=== PATIENT | male | born 1990 | race African-American/Black ===

== ENCOUNTER 2017-02-24 13:52 | Emergency (ER) | payer SELFPAY ==
[2017-02-24] MEDS ORDERED: LIDOCAINE 5% (700 MG) TRANSDERMAL ADH..PATCH TP ONE (14:21)
--- NOTE | 2017-02-24 14:23 | ER Document Report ---
HPI - HPI Patient complains to provider of: low back pain Onset: Yesterday Onset/Duration: Sudden Quality of pain: Achy Pain Level: 4 Context: Patient states that he bent down to moss picker his little sister yesterday and had a sudden onset of left lower back pain. Patient complains of continued back pain today. Patient denies any previous history of back pain, fever, or IV drug use. Patient denies any weakness. Associated Symptoms: Other. denies: Fever - Low back pain Exacerbated by: Movement Relieved by: Remaining still Similar symptoms previously: No Recently seen / treated by doctor: No - ROS ROS below otherwise negative: Yes Systems Reviewed and Negative: Yes All other systems reviewed and negative - CONSTITUTIONAL Constitutional: DENIES: Fever - NEURO Neurology: DENIES: Weakness - URINARY Urinary: DENIES: Dysuria - MUSCULOSKELETAL Musculoskeletal: REPORTS: Back Pain. DENIES: Extremity pain, Neck Pain - DERM Skin Color: Normal Skin Problems: None Past Medical History - General Information source: Patient - Social History Smoking Status: Current Every Day Smoker Frequency of alcohol use: Occasional Drug Abuse: None Occupation: none Lives with: Family Family History: Reviewed & Not Pertinent Patient has suicidal ideation: No Patient has homicidal ideation: No Pulmonary Medical History: Reports: Hx Asthma Renal/ Medical History: Denies: Hx Peritoneal Dialysis Psychiatric Medical History: Reports: Hx Anxiety, Hx Depression, Hx Schizophrenia - , agorophobic panic disorder Surgical Hx: Negative - Immunizations Immunizations up to date: No Hx Diphtheria, Pertussis, Tetanus Vaccination: No Vertical Provider Document - CONSTITUTIONAL Agree With Documented VS: Yes Exam Limitations: No Limitations General Appearance: WD/WN, No Apparent Distress Notes: PHYSICAL EXAMINATION: GENERAL: Well-appearing, well-nourished and in no acute distress. HEAD: Atraumatic, normocephalic. EYES: sclera clear, anicteric, conjunctiva are normal. ENT: nares patent, Moist mucous membranes. NECK: Normal range of motion, supple no lymphadenopathy LUNGS: respirations unlabored HEART: Regular rate and rhythm without murmurs EXTREMITIES: Normal range of motion, no pitting or edema. No cyanosis. Gait normal, pt ambulates without difficulty BACK: Left lower lumbar paraspinal Frans[place], no midline tenderness, no deformities or step-offs. No CVA tenderness. NEUROLOGICAL: Cranial nerves grossly intact. Normal speech, normal gait. No saddle anesthesia. PSYCH: Normal mood, normal affect. SKIN: Warm, Dry, normal turgor, no rashes or lesions noted. - INFECTION CONTROL TRAVEL OUTSIDE OF THE [place] IN LAST 30 DAYS: No - RESPIRATORY O2 Sat by Pulse Oximetry: 99 Course - Re-evaluation Re-evalutation: 02/24/17 14:21 Discussed worsening signs or symptoms that patient should return to [facility] for. Patient verbalized understanding and agrees plan of care - Vital Signs Vital signs: Temp Pulse Resp BP Pulse Ox 99.0 F 76 16 138/52 H 99 02/24/17 14:00 02/24/17 14:00 02/24/17 14:00 02/24/17 14:00 02/24/17 14:00 Discharge - Discharge Clinical Impression: Low back strain Qualifiers: Encounter type: initial encounter Qualified Code(s): S39.012A - Strain of muscle, fascia and tendon of lower back, initial encounter Condition: Stable Disposition: HOME, SELF-CARE Instructions: Warm Packs ([facility]), Ice Packs ([facility]), Low Back Pain ([facility]), Muscle Strain ([facility]), Muscle Relaxers ([facility]) Additional Instructions: Return immediately for any new or worsening symptoms Followup with your primary care provider, call tomorrow to make a followup appointment You may use [id number] topical lidocaine patches as directed Prescriptions: Cyclobenzaprine HCl [Flexeril 10 Mg Tablet] 10 mg PO TID #15 tablet Naproxen [Naprosyn 250 Nmg Tablet] 1 tab PO BID #14 tablet Referrals: [facility] [Provider Group] - Follow up as needed [facility] [Provider Group] - Follow up tomorrow
[2017-02-24 14:58] VITALS: BP 123/56
== END 2017-02-24 14:31 | disposition home or self-care (01) ==
LOC: ER 13:52
DX: S39.012A Strain of muscle, fascia and tendon of lower back, initial encounter (principal); X50.1XXA Overexertion from prolonged static or awkward postures, initial encounter; Y93.89 Activity, other specified; J45.909 Unspecified asthma, uncomplicated; F17.200 Nicotine dependence, unspecified, uncomplicated
CPT/HCPCS: 99283

== ENCOUNTER 2017-10-13 10:14 | Emergency (ER) | payer SELFPAY ==
[2017-10-13] MEDS ORDERED: IBUPROFEN 800 MG TABLET PO ONE (10:47)
[2017-10-13] MEDS ORDERED: DIPH/PERTUSS(ACELL)/TETANUS VAC/PF 0.5 ML SYR (>=10YO) IM ONE (10:47)
--- NOTE | 2017-10-13 10:49 | ER Document Report ---
HPI - HPI Patient complains to provider of: Right arm injury Onset: Yesterday Onset/Duration: Sudden Quality of pain: Achy Pain Level: 5 Context: Patient states he was drinking alcohol yesterday and fell breaking a glass plate. Patient complains of right forearm tenderness and is concerned that his arm is broken. Associated Symptoms: Other - Right forearm tenderness Exacerbated by: Movement Relieved by: Denies Similar symptoms previously: No Recently seen / treated by doctor: No - ROS ROS below otherwise negative: Yes Systems Reviewed and Negative: Yes All other systems reviewed and negative - CONSTITUTIONAL Constitutional: DENIES: Fever, Chills - NEURO Neurology: DENIES: Weakness - GASTROINTESTINAL Gastrointestinal: DENIES: Nausea - MUSCULOSKELETAL Musculoskeletal: REPORTS: Extremity pain - DERM Skin Problems: Laceration Past Medical History - General Information source: Patient - Social History Smoking Status: Current Every Day Smoker Smoking Education Provided: Yes Frequency of alcohol use: Occasional Drug Abuse: None Occupation: None Lives with: Family Family History: Reviewed & Not Pertinent Pulmonary Medical History: Reports: Hx Asthma Renal/ Medical History: Denies: Hx Peritoneal Dialysis Psychiatric Medical History: Reports: Hx Anxiety, Hx Depression, Hx Schizophrenia - , agorophobic panic disorder Surgical Hx: Negative - Immunizations Immunizations up to date: No Hx Diphtheria, Pertussis, Tetanus Vaccination: No Vertical Provider Document - CONSTITUTIONAL Agree With Documented VS: Yes Exam Limitations: No Limitations General Appearance: WD/WN, No Apparent Distress - INFECTION CONTROL TRAVEL OUTSIDE OF THE [place] IN LAST 30 DAYS: No - HEENT HEENT: Atraumatic, Normocephalic - NECK Neck: Normal Inspection - RESPIRATORY Respiratory: No Respiratory Distress O2 Sat by Pulse Oximetry: 96 - CARDIOVASCULAR Pulses: Normal: Radial - MUSCULOSKELETAL/EXTREMETIES Musculoskeletal/Extremeties: MAEW, Tender - Right forearm tenderness with 1 cm laceration to middle third of right forearm. - NEURO Level of Consciousness: Awake, Alert, Appropriate Motor/Sensory: No Motor Deficit - DERM Integumentary: Warm, Dry, Laceration - r FA Course - Re-evaluation Re-evalutation: 10/13/17 12:19 After laceration was anesthetized with 1% lidocaine, wound was probed to attempt to remove glass foreign body. This provider unsuccessful with foreign body removal. Dr. Layton at bedside for attempt at foreign body removal. Recommends consultation with orthopedic surgeon. Consulted with Dr. Laird who recommends having patient sent over to the office directly for further evaluation. 10/13/17 12:20 - Vital Signs Vital signs: Temp Pulse Resp BP Pulse Ox 98.6 F 91 18 114/76 96 10/13/17 10:30 10/13/17 10:30 10/13/17 10:30 10/13/17 10:30 10/13/17 10:30 - Diagnostic Test Radiology reviewed: Image reviewed, Reports reviewed Discharge - Discharge Clinical Impression: Foreign body in subcutaneous tissue Condition: Stable Disposition: HOME, SELF-CARE Instructions: Retained Subcutaneous Foreign Object ([facility]) Additional Instructions: Return immediately for any new or worsening symptoms Followup with Dr. Laird in his office directly. He states that he will evaluate you in the office today. Referrals: HOWIE LAIRD MD [ACTIVE STAFF] - 10/13/17
--- NOTE | 2017-10-13 11:12 | RADIOLOGY REPORT (SQ) ---
EXAM DESCRIPTION: FOREARM RIGHT COMPLETED DATE/TIME: 10/13/2017 11:02 am REASON FOR STUDY: fall on glass, ? FB COMPARISON: None. NUMBER OF VIEWS: Two views. TECHNIQUE: Two radiographic images acquired of the right forearm, including elbow and wrist in at le ast one projection. LIMITATIONS: None. FINDINGS: MINERALIZATION: Normal. BONES: Triangular-shaped foreign body is apparently imbedded in the mid ulna. SOFT TISSUES: A triangular shaped radiopaque foreign body appears to be imbedded in the mid ulna. OTHER: No other significant finding. IMPRESSION: Triangular foreign body in the mid ulna. TECHNICAL DOCUMENTATION: JOB ID: [id number] [employer]- All Rights Reserved
[2017-10-13 13:01] VITALS: BP 116/69
== END 2017-10-13 13:02 | disposition home or self-care (01) ==
LOC: ER 10:14
DX: S51.821A Laceration with foreign body of right forearm, initial encounter (principal); W10.9XXA Fall (on) (from) unspecified stairs and steps, initial encounter; W25.XXXA Contact with sharp glass, initial encounter; J45.909 Unspecified asthma, uncomplicated; F17.200 Nicotine dependence, unspecified, uncomplicated; Z71.6 Tobacco abuse counseling
CPT/HCPCS: 90471; 90715; 99283

== ENCOUNTER 2019-03-27 17:16 | Emergency (ER) | payer SELFPAY ==
--- NOTE | 2019-03-27 17:35 | ER Document Report ---
ED Medical Screen (RME) - General Chief Complaint: Testicular Pain Stated Complaint: TESTICLE PAIN Time Seen by Provider: 03/27/19 17:30 Mode of Arrival: Medic Information source: Patient Notes: Patient presents to the emergency department brought in by EMS for complaints of right testicular pain and swelling. Reports symptoms started this morning. He reports he ran a bunch of errands this morning and by the time he finished his right testicle was more swollen. He also reports penile discharge. Reportss he is sexually active but uses condoms. Denies fever vomiting diarrhea reports l ower abdominal pain. Patient is wrapped up in 2 jackets reports he likes to sleep with really cold with the air conditioning cranked up. The ambulance picked him up at his mother's house. I have greeted and performed a rapid initial assessment of this patient. A comprehensive ED assessment and evaluation of the patient, analysis of test results and completion of the medical decision making process will be conducted by additional ED providers. Dictation of this chart was performed using voice recognition software; therefore, there may be some unintended grammatical errors. TRAVEL OUTSIDE OF THE [place] IN LAST 30 DAYS: No - Related Data Allergies/Adverse Reactions: risperidone [From Risperdal] Allergy (Mild, Verified 03/27/19 17:25) Dystonia iodine [Iodine] Allergy (Verified 03/27/19 17:25) Shellfish * [Shellfish] Allergy (Verified 03/27/19 17:25) Past Medical History Pulmonary Medical History: Reports: Hx Asthma Renal/ Medical History: Denies: Hx Peritoneal Dialysis Psychiatric Medical History: Reports: Hx Anxiety, Hx Depression, Hx Schizophrenia - , agorophobic panic disorder - Immunizations Immunizations up to date: No Hx Diphtheria, Pertussis, Tetanus Vaccination: No Physical Exam - Vital signs Vitals: Temp Pulse Resp BP Pulse Ox 99.6 F 90 16 101/59 L 94 03/27/19 17:24 03/27/19 17:24 03/27/19 17:24 03/27/19 17:24 03/27/19 17:24 Course - Vital Signs Vital signs: Temp Pulse Resp BP Pulse Ox 99.6 F 90 16 101/59 L 94 03/27/19 17:24 03/27/19 17:24 03/27/19 17:24 03/27/19 17:24 03/27/19 17:24
[2019-03-27 18:22] LABS: ABSOLUTE LYMPHOCYTES (AUTO) 1.3 10^3/uL (0.5-4.7); ABSOLUTE MONOCYTES (AUTO) 0.7 10^3/uL (0.1-1.4); ABSOLUTE NEUT (AUTO) 11.8 10^3/uL (1.7-8.2); BASOPHILS % (AUTO) 0.2 % (0-2); HEMATOCRIT 44.1 % (37.9-51.0); HEMOGLOBIN 14.6 g/dL (13.5-17.0); LYMPHOCYTES % (AUTO) 9.7 % (13-45); MEAN CORPUSCULAR HEMOGLOBIN 32.1 pg (27.0-33.4); MEAN CORPUSCULAR HGB CONC 33.2 g/dL (32.0-36.0); MEAN CORPUSCULAR VOLUME 97 fl (80-97); MONOCYTES % (AUTO) 5.4 % (3-13); PLATELET COUNT 304 10^3/uL (150-450); RED BLOOD COUNT 4.56 10^6/uL (4.35-5.55); RED CELL DISTRIBUTION WIDTH 12.9 % (11.5-14.0); SEGMENTED NEUTROPHILS % (AUTO) 84.7 % (42-78); TOTAL CELLS COUNTED % (AUTO) 100 %; WHITE BLOOD COUNT 13.9 10^3/uL (4.0-10.5)
[2019-03-27 18:28] LABS: APPEARANCE,URINE SLIGHTLY-CLOUDY; BILIRUBIN,URINE NEGATIVE (NEGATIVE); COLOR,URINE YELLOW; GLUCOSE, URINE NEGATIVE (NEGATIVE); KETONES,URINE NEGATIVE (NEGATIVE); LEUKOCYTE ESTERASE,URINE LARGE (NEGATIVE); NITRITE,URINE NEGATIVE (NEGATIVE); PROTEIN,URINE NEGATIVE (NEGATIVE); URINE SPECIFIC GRAVITY 1.015; UROBILINOGEN,URINE NEGATIVE mg/dL (<2.0)
[2019-03-27 18:35] LABS: ALANINE AMINOTRANSFERASE 21 U/L (21-72); ALBUMIN 3.3 g/dL (3.5-5.0); ALKALINE PHOSPHATASE 40 U/L (38-126); ANION GAP 8 (5-19); ASPARTATE AMINO TRANSFERASE 25 U/L (17-59); BILIRUBIN,DIRECT 0.1 mg/dL (0.0-0.4); BLOOD UREA NITROGEN 9 mg/dL (7-20); CALCIUM 9.2 mg/dL (8.4-10.2); CARBON DIOXIDE 31 mmol/L (22-30); CHLORIDE 101 mmol/L (98-107); GLUCOSE 135 mg/dL (75-110); POTASSIUM 5.1 mmol/L (3.6-5.0); SODIUM 139.5 mmol/L (137-145); TOTAL PROTEIN 5.7 g/dL (6.3-8.2)
[2019-03-27] MEDS ORDERED: ONDANSETRON 4 MG TAB.RAPDIS PO ONE (18:55)
[2019-03-27] MEDS ORDERED: DOXYCYCLINE HYCLATE 100 MG TABLET PO ONE (19:02)
[2019-03-27] MEDS ORDERED: CEFTRIAXONE INJ 250 MG VIAL IM ONE (19:02)
[2019-03-27] MEDS ORDERED: LIDOCAINE 1% INJ-PF (10 MG/ML) 30 ML SDV INJ ONE (19:02)
--- NOTE | 2019-03-27 19:10 | ER Document Report ---
ED GI/ - General Chief Complaint: Testicular Pain Stated Complaint: TESTICLE PAIN Time Seen by Provider: 03/27/19 17:30 Mode of Arrival: Ambulatory Information source: Patient Notes: 28-year-old male presented to ED for complaint of pain and swelling to his right testicle with nausea that started this morning. He states he ran about [employer] this morning but accompanied but is concerned that the right testicle is more swollen. He states he also has a penile discharge. He is sexually active but states he uses condoms. He denies any fevers or diarrhea but does have lower abdominal pain and nausea. Patient is alert oriented respirations regular and unlabored speaking in full sentences he is curled up in the bed because he states his testicle is very painful. TRAVEL OUTSIDE OF THE [place] IN LAST 30 DAYS: No - HPI Patient complains to provider of: Groin pain, Testicular pain, Other - Nausea Onset: This morning Timing/Duration: Gradual, Worse Quality of pain: Sharp, Throbbing Severity at maximum: Severe Severity in ED: Severe Pain Level: 5 Location: Suprapubic - Groin, Right testicle, Other Sexual history: Active, Condoms Associated symptoms: Penile discharge, Other - Right testicle pain scrotal pain Exacerbated by: Movement, Walking Relieved by: Denies Similar symptoms previously: No Recently seen / treated by doctor: No - Related Data Allergies/Adverse Reactions: risperidone [From Risperdal] Allergy (Mild, Verified 03/27/19 17:25) Dystonia iodine [Iodine] Allergy (Verified 03/27/19 17:25) Shellfish * [Shellfish] Allergy (Verified 03/27/19 17:25) Past Medical History - General Information source: Patient - Social History Smoking Status: Current Every Day Smoker Cigarette use (# per day): Yes - Half pack a day Chew tobacco use (# tins/day): No Smoking Education Provided: Yes - 4 minutes Frequency of alcohol use: Social Drug Abuse: None Occupation: [employer] Lives with: Friend Family History: Reviewed & Not Pertinent Patient has suicidal ideation: No Patient has homicidal ideation: No - Past Medical History Cardiac Medical History: Reports: None Pulmonary Medical History: Reports: Hx Asthma EENT Medical History: Reports: None Neurological Medical History: Reports: None Endocrine Medical History: Reports: None Renal/ Medical History: Reports: None Malignancy Medical History: Reports None GI Medical History: Reports: None Musculoskeletal Medical History: Reports None Skin Medical History: Reports None Psychiatric Medical History: Reports: Hx Anxiety, Hx Depression, Hx Schi zophrenia - agorophobic panic disorder Traumatic Medical History: Reports: None Infectious Medical History: Reports: None Surgical Hx: Negative Past Surgical History: Reports: None - Immunizations Immunizations up to date: Yes Hx Diphtheria, Pertussis, Tetanus Vaccination: Yes Review of Systems - Review of Systems Constitutional: No symptoms reported EENT: No symptoms reported Cardiovascular: No symptoms reported Respiratory: No symptoms reported Gastrointestinal: Nausea Genitourinary: No symptoms reported Male Genitourinary: Testicular pain, Penile discharge, Other - Enlarged painful right testicle Musculoskeletal: No symptoms reported Skin: No symptoms reported Hematologic/Lymphatic: No symptoms reported Neurological/Psychological: No symptoms reported -: Yes All other systems reviewed and negative Physical Exam - Vital signs Vitals: Temp Pulse Resp BP Pulse Ox 99.6 F 90 16 101/59 L 94 03/27/19 17:24 03/27/19 17:24 03/27/19 17:24 03/27/19 17:24 03/27/19 17:24 Interpretation: Normal - General General appearance: Appears well, Alert - HEENT Head: Normocephalic, Atraumatic Eyes: Normal Pupils: PERRL - Respiratory Respiratory status: No respiratory distress Chest status: Nontender Breath sounds: Normal Chest palpation: Normal - Cardiovascular Rhythm: Regular Heart sounds: Normal auscultation Murmur: No - Abdominal Inspection: Normal Distension: No distension Bowel sounds: Normal Tenderness: Nontender Organomegaly: No organomegaly - Genitourinary Inspection: Penile discharge Tenderness: Testicle tender - Yellow, Epididymis tender Scrotum: Swelling, Redness. No: Hot to touch - Back Back: Normal, Nontender - Extremities General upper extremity: Normal inspection, Nontender, Normal color, Normal ROM, Normal temperature General lower extremity: Normal inspection, Nontender, Normal color, Normal ROM, Normal temperature, Normal weight bearing. No: Fito's sign - Neurological Neuro grossly intact: Yes Cognition: Normal Orientation: AAOx4 [place] Coma Scale Eye Opening: Spontaneous [place] Coma Scale Verbal: Oriented [place] Coma Scale Motor: Obeys Commands [place] Coma Scale Total: 15 Speech: Normal Motor strength normal: LUE, RUE, LLE, RLE Sensory: Normal - Psychological Associated symptoms: Normal affect, Normal mood - Skin Skin Temperature: Warm Skin Moisture: Dry Skin Color: Normal Course - Re-evaluation Re-evalutation: 03/27/19 20:08 Ultrasound and lab results consistent with gonorrhea or epididymitis with hydrocele to the right testicle. Patient has been treated for gonorrhea and instructed to follow-up with urologist. He was instructed to call tomorrow to schedule follow-up appointment. Patient verbalized understanding and agreement with treatment plan. Patient has been instructed no sex for 10 days. - Vital Signs Vital signs: Temp Pulse Resp BP Pulse Ox 99.6 F 90 16 101/59 L 94 03/27/19 17:24 03/27/19 17:24 03/27/19 17:24 03/27/19 17:24 03/27/19 17:24 - Laboratory Result Diagrams: 03/27/19 17:45 03/27/19 17:45 Laboratory results interpreted by me: 03/27/19 03/27/19 03/27/19 17:45 17:45 17:45 WBC 13.9 H Seg Neutrophils % 84.7 H Lymphocytes % 9.7 L Absolute Neutrophils 11.8 H Potassium 5.1 H Carbon Dioxide 31 H Glucose 135 H Total Protein 5.7 L Albumin 3.3 L Ur Leukocyte Esterase N.gonorrhoeae DNA (PCR) DETECTED H 03/27/19 17:45 WBC Seg Neutrophils % Lymphocytes % Absolute Neutrophils Potassium Carbon Dioxide Glucose Total Protein Albumin Ur Leukocyte Esterase LARGE H N.gonorrhoeae DNA (PCR) - Diagnostic Test Radiology reviewed: Image reviewed, Reports reviewed Discharge - Discharge Clinical Impression: Gonorrhea, Orchitis and epididymitis, Hydrocele of testis Condition: Stable Disposition: HOME, SELF-CARE Additional Instructions: Gonorrhea You have been diagnosed with gonorrhea. In men, this germ infects the urethra (and sometimes the throat). Men usually have drainage from the penis and pain with urination. In women, the germ infects the vagina and fallopian tubes. There may be discharge and pelvic pain. Some women have no symptoms at all. The infection can do permanent damage to the tubes and ovaries. It should be taken very seriously. Treatment is antibiotics. It's important that you receive all recommended medication. Use condoms to prevent spread of the infection. Because this infection is spread sexually, your sexual partner must be checked before resuming sexual relations. If a culture shows gonorrhea germs, it must be reported to the health department. Call the doctor or return at once if you develop increasing fever, rash, joint swelling, severe pelvic pain, vaginal bleeding (other than your period), or problems with your bladder or bowels. Epididymitis You have epididymitis. This is an inflammation of the organ just behind the testicle, called the epididymis. It can be due to infection in the bladder or prostate. Many cases are simply inflammation and are not caused by germs. Epididymitis often develops after heavy lifting or vigorous exercise. Antibiotics and antiinflammatory medication are often prescribed. Elevation of the scrotum with a jock-strap or tight briefs will help with the pain. Pain medication may be required. Either cold packs or warm sitz baths can help with the pain -- ask your doctor which he recommends for your case. It may take 10 to 14 days until the pain is gone. Avoid heavy lifting during this time. Call the doctor or go to the hospital if you develop fever, increasing pain, or severe swelling, or if you fail to improve as expected. Hydrocele You have been diagnosed as having a hydrocele. The sac that holds the testicles is called the scrotum. A hydrocele is usually a painless collection of fluid in the membrane that covers the testicle(s). This may be present at or develop later on in life. The cause is usually unknown. In infants a hydrocele can be due to a miscommunication of the fluid surrounding the testes. In adults a hydrocele may form due to injury or inflammation of surrounding structures. Most hydroceles require no treatment, and usually resolve on their own. However, sometimes surgical intervention is recommended for recurrent, or for unusually large hydroceles. The surgery to fix a hydrocele is a minor procedure and usually takes about 1 and 1/2 hours. TORADOL INJECTION: You have been given an injection of ketorolac tromethamine (Toradol). This is an excellent, safe drug for pain control. It also has potent antiinflammatory action. You should have significant pain relief within about one hour. Toradol is not addicting and is non-sedating. It does not interfere with driving or work. Call or return if you develop itching, hives, shortness of breath, or rash. DOXYCYCLINE: Doxycycline (Vibramycin, Doryx) is an antibiotic of the tetracycline family. This type of drug is useful for infections of the respiratory tract and genital tract, and is sometimes used for intestinal infections. Unlike most tetracyclines, doxycycline can be taken with food. It is longer acting, and (usually) less prone to side effects than regular tetracycline. Tetracycline antibiotics can stain immature teeth and SHOULD NOT BE TAKEN BY CHILDREN, NURSING MOTHERS, OR WOMEN. Tetracyclines can make you more prone to sunburn. Abdominal cramping, nausea, and diarrhea are occasional side effects. Women may experience vaginal yeast infections. Call the doctor at once if you develop hives, itching, shortness of breath, or lightheadedness. Rocephin You have been given an injection of an antibiotic called Rocephin (ceftri axone). Sometimes the injection must be combined with antibiotic pills. For some infections, such as an uncomplicated ear infection, Rocephin provides all the antibiotic that's needed. The antibiotic will be in your body for about two days. For serious infections, we usually repeat doses of Rocephin daily. Side effects are very unusual following a shot. Women may develop vaginal yeast infections, and babies can get yeast (thrush) in the mouth following the use of antibiotics. Contact your physician if you have symptoms with this medication. Allergy to this antibiotic can result in hives, wheezing, faintness, or itching. If symptoms of allergy occur, call the doctor at once. Antinausea Medication You have been given a medication to suppress nausea and vomiting. This type of medication can be given as a shot, pill, or suppository. It will usually last for many hours. Pills and shots usually last six to eight hours, supposito lawrence last about 12 hours. For the typical illness, only one or two doses of the medication may be necessary. Mild lightheadedness may occur. This type of medicine can cause drowsiness. Do not drive or operate dangerous machinery while under its influence. Do not mix with alcohol. See your doctor at once if you have muscle spasms or tightness, or uncontrollable motions (particularly of the neck, mouth, or jaw). Persistent vomiting or severe lightheadedness should also be evaluated by the physician. FOLLOW-UP CARE: If you have been referred to a physician for follow-up care, call the physicians office for an appointment as you were instructed or within the next two days. If you experience worsening or a significant change in your symptoms, notify the physician immediately or return to the Emergency Department at any time for re-evaluation. [email or web address] [address] [facility] [email or web address] [address] [email or web address] [address] [facility] Prescriptions: Doxycycline Hyclate 100 mg PO BID #20 capsule Ondansetron [Zofran Odt 4 mg Tablet] 1 tab PO Q6H #15 tab.rapdis Forms: Smoking Cessation Education, Return to Work
[2019-03-27] MEDS ORDERED: KETOROLAC TROMETHAMINE 60 MG/2 ML SDV IM ONE (19:16)
--- NOTE | 2019-03-27 19:36 | RADIOLOGY REPORT (SQ) ---
EXAM DESCRIPTION: U/S SCROTUM W/DOPPLER COMPLETED DATE/TIME: 03/27/2019 6:47 pm REASON FOR STUDY: right testicular pain and swelling COMPARISON: None. TECHNIQUE: Static and realtime morrow scale imaging of the scrotum and testes. Selected color Doppler and spectral images recorded to document blood flow. LIMITATIONS: None. FINDINGS: RIGHT: TESTICLE: Normal size. Normal echotexture. Increased blood flow. No mass. EPIDIDYMIS: Epididymis is enlarged and heterogenous and hypervascular. HYDROCELE OR VARICOCELE: Moderate size complex hydrocele. HERNIA OR EXTRA-TESTICULAR MASS: No. OTHER: No other significant finding. LEFT: TESTICLE: Normal size. Normal echotexture. Normal blood flow. No mass. EPIDIDYMIS: Normal. HYDROCELE OR VARICOCELE: No. HERNIA OR EXTRA-TESTICULAR MASS: No. OTHER: No other significant finding. IMPRESSION: Findings suggestive of right epididymo-orchitis with a moderate size complex hydrocele. TECHNICAL DOCUMENTATION: JOB ID: [id number] [employer]- All Rights Reserved Reading location - IP/workstation name: [email or web address]
[2019-03-27 19:46] LABS: CHLAM PCR NOT DETECTED (NOT DETECT); GON PCR DETECTED (NOT DETECT)
[2019-03-27 20:16] VITALS: BP 113/50
== END 2019-03-27 20:16 | disposition home or self-care (01) ==
LOC: ER 17:16
DX: N45.3 Epididymo-orchitis (principal); A54.9 Gonococcal infection, unspecified; N43.3 Hydrocele, unspecified; R11.0 Nausea; J45.909 Unspecified asthma, uncomplicated; F17.210 Nicotine dependence, cigarettes, uncomplicated; Z71.6 Tobacco abuse counseling; Z88.8 Allergy status to other drugs, medicaments and biological substances; Z91.013 Allergy to seafood
CPT/HCPCS: 99406; 99284; 96372; 36415; 87086; 85025; 80053; 81001; 87491; 87591; 76870; 93976; J1885; S0119; J3490; J0696

== ENCOUNTER 2019-10-09 17:57 | Emergency (ER) | payer SELFPAY ==
--- NOTE | 2019-10-09 18:21 | ER Document Report ---
ED Medical Screen (RME) - General Chief Complaint: Psych Problem Stated Complaint: PSYCH EVAL Time Seen by Provider: 10/09/19 18:16 Mode of Arrival: Ambulatory Information source: Patient Notes: 28-year-old male presented to ED for for panic attack today. He states he does have a history of panic attacks and schizophrenia. He states that more more frequently he feels like there is another presence beside him when he is alone. He states he does not hear or see anything that is not there. He states he has had dizziness and headache today. He states he smokes 6 to 10 cigarettes a day drinks socially and does smoke marijuana but is not the same frequency as the feeling presents around him. He states he has smoked marijuana today. He states he has used other drugs in the past but not recently. He states he was on medicine for his schizophrenia but he could not afford it so he has not been taking it. He denies any suicidal or homicidal thoughts. I have greeted and performed a rapid initial assessment of this patient. A comprehensive ED assessment and evaluation of the patient, analysis of test results and completion of medical decision making process will be conducted by an additional ED providers. TRAVEL OUTSIDE OF THE [place] IN LAST 30 DAYS: No - Related Data Allergies/Adverse Reactions: risperidone [From Risperdal] Allergy (Mild, Verified 03/27/19 17:25) Dystonia iodine [Iodine] Allergy (Verified 03/27/19 17:25) Shellfish * [Shellfish] Allergy (Verified 03/27/19 17:25) Past Medical History Pulmonary Medical History: Reports: Hx Asthma Renal/ Medical History: Denies: Hx Peritoneal Dialysis Psychiatric Medical History: Reports: Hx Anxiety, Hx Depression, Hx Schizophrenia - agorophobic panic disorder - Immunizations Immunizations up to date: Yes Hx Diphtheria, Pertussis, Tetanus Vaccination: Yes
[2019-10-09 19:09] VITALS: BP 104/53
[2019-10-09 19:24] LABS: ABSOLUTE LYMPHOCYTES (AUTO) 2.2 10^3/uL (0.5-4.7); ABSOLUTE MONOCYTES (AUTO) 0.4 10^3/uL (0.1-1.4); ABSOLUTE NEUT (AUTO) 4.7 10^3/uL (1.7-8.2); BASOPHILS % (AUTO) 0.6 % (0-2); EOSINOPHILS % (AUTO) 0.3 % (0-6); HEMATOCRIT 40.2 % (37.9-51.0); HEMOGLOBIN 13.7 g/dL (13.5-17.0); LYMPHOCYTES % (AUTO) 30.2 % (13-45); MEAN CORPUSCULAR HEMOGLOBIN 32.6 pg (27.0-33.4); MEAN CORPUSCULAR HGB CONC 34.1 g/dL (32.0-36.0); MEAN CORPUSCULAR VOLUME 96 fl (80-97); MONOCYTES % (AUTO) 4.9 % (3-13); PLATELET COUNT 306 10^3/uL (150-450); RED CELL DISTRIBUTION WIDTH 13.3 % (11.5-14.0); TOTAL CELLS COUNTED % (AUTO) 100 %; WHITE BLOOD COUNT 7.4 10^3/uL (4.0-10.5)
[2019-10-09 19:43] LABS: ALBUMIN 3.1 g/dL (3.5-5.0); ALKALINE PHOSPHATASE 37 U/L (38-126); ANION GAP 6 (5-19); ASPARTATE AMINO TRANSFERASE 21 U/L (17-59); BILIRUBIN,DIRECT 0.1 mg/dL (0.0-0.4); BILIRUBIN,TOTAL 0.5 mg/dL (0.2-1.3); BLOOD UREA NITROGEN 11 mg/dL (7-20); CALCIUM 8.6 mg/dL (8.4-10.2); CARBON DIOXIDE 26 mmol/L (22-30); CHLORIDE 106 mmol/L (98-107); GLUCOSE 105 mg/dL (75-110); POTASSIUM 3.8 mmol/L (3.6-5.0); TOTAL PROTEIN 6.1 g/dL (6.3-8.2)
[2019-10-09 19:44] LABS: ACETAMINOPHEN < 10 ug/mL (10-30); ALCOHOL < 10 mg/dL (NONE DETECTED); SALICYLATE < 1.0 mg/dL (2.0-20.0)
[2019-10-09 19:56] LABS: APPEARANCE,URINE CLEAR; BILIRUBIN,URINE NEGATIVE (NEGATIVE); COLOR,URINE YELLOW; GLUCOSE, URINE NEGATIVE (NEGATIVE); KETONES,URINE NEGATIVE (NEGATIVE); LEUKOCYTE ESTERASE,URINE NEGATIVE (NEGATIVE); NITRITE,URINE NEGATIVE (NEGATIVE); PROTEIN,URINE NEGATIVE (NEGATIVE); URINE SPECIFIC GRAVITY 1.028
[2019-10-09 20:11] LABS: URINE AMPHETAMINES SCREEN NEGATIVE; URINE BARBITURATES SCREEN NEGATIVE; URINE BENZODIAZEPINES SCREEN NEGATIVE; URINE METHADONE SCREEN NEGATIVE; URINE PHENCYCLIDINE SCREEN NEGATIVE
[2019-10-09 20:13] LABS: URINE COCAINE SCREEN UNCONFIRMED POSITIVE; URINE MARIJUANA (THC) SCREEN UNCONFIRMED POSITIVE
--- NOTE | 2019-10-09 20:32 | ER Document Report ---
ED General - General Chief Complaint: Psych Problem Stated Complaint: PSYCH EVAL Time Seen by Provider: 10/09/19 18:16 Mode of Arrival: Ambulatory Notes: 28-year-old male presents emergency department concerned because he has been "losing time" patient states that time "skips a head" and all of a sudden it will be an hour or 2 later than it was the last time he looked up. Patient states that he also feels like he is been getting more forgetful, states that he walks into a new room and then forgets why he was even there. States that whenever this happens he starts to feel panicky and then he starts to feel like he is having difficulty breathing and then his throat becomes dry and it gets worse and then he has a panic attack. Patient states that he has a history of panic disorder and was previously taken treated with Xanax. States that he has not had any medication for his panic disorder in years but feels like these panic attacks are little bit worse today. Patient has never lost consciousness during these episodes to his knowledge, has never woken up somewhere else and then where the episode started, has never woken up on the ground, has never lost control of his bowels or bladder, does not have any unexplained injuries that show up immediately after the episode. Denies suicidal or homicidal ideation, denies visual or auditory hallucinations. States that sometimes he does feel like there is another presence in the room with him and it makes him anxious but that is all. He does admit to smoking marijuana and using cocaine, states that sometimes times skips a head more when he is using cocaine. His most recent example was today when he was riding his notebook, states that he only wrote 3 sentences and all of a sudden it was an hour and a half later. TRAVEL OUTSIDE OF THE [place] IN LAST 30 DAYS: No - Related Data Allergies/Adverse Reactions: risperidone [From Risperdal] Allergy (Mild, Verified 03/27/19 17:25) Dystonia iodine [Iodine] Allergy (Verified 03/27/19 17:25) Shellfish * [Shellfish] Allergy (Verified 03/27/19 17:25) Past Medical History - General Information source: Patient - Social History Smoking Status: Current Every Day Smoker Frequency of alcohol use: Occasional Drug Abuse: Cocaine, Marijuana Family History: Reviewed & Not Pertinent Patient has suicidal ideation: No Patient has homicidal ideation: No Pulmonary Medical History: Reports: Hx Asthma Renal/ Medical History: Denies: Hx Peritoneal Dialysis Psychiatric Medical History: Reports: Hx Anxiety, Hx Depression, Hx Schizophr enia - agorophobic panic disorder - Immunizations Immunizations up to date: Yes Hx Diphtheria, Pertussis, Tetanus Vaccination: Yes Review of Systems - Review of Systems Constitutional: See HPI - Increased anxiety, skipping time. EENT: See HPI Cardiovascular: See HPI Respiratory: See HPI Gastrointestinal: No symptoms reported Neurological/Psychological: See HPI -: Yes All other systems reviewed and negative Physical Exam - Vital signs Vitals: Temp Pulse Resp BP Pulse Ox 98.1 F 84 16 132/61 H 96 10/09/19 18:18 10/09/19 18:18 10/09/19 18:18 10/09/19 18:18 10/09/19 18:18 Interpretation: Normal - Notes Notes: GENERAL: Alert, interacts well. No acute distress. HEAD: Normocephalic, atraumatic EYES: Pupils equal, round and reactive to light, extraocular movements intact. ENT: Oral mucosa moist, tongue midline. NECK: Full range of motion, supple, trachea midline. LUNGS: Clear to auscultation bilaterally, no wheezes, rales or rhonchi, no respiratory distress. HEART: Regular rate and rhythm, no murmurs, gallops, rubs. ABDOMEN: Soft, nontender, nondistended, bowel sounds present in all 4 quadrants. EXTREMITIES: Moves all 4 extremities spontaneously, no edema, radial and dorsalis pedis pulses 2/4 bilaterally. No cyanosis. NEUROLOGICAL: Alert and oriented x3, normal speech, cranial nerves II through XII grossly intact, biceps and patellar DTRs 2+ bilaterally. Gwsehp-[id number] and abbx-zx-fuoq test intact. PSYCH: Slightly anxious, not tearful, interacts well, no evidence of hallucinations. SKIN: Warm, Dry, normal turgor, no rashes or lesions noted. Course - Re-evaluation Re-evalutation: 10/09/19 20:33 CBC unremarkable, CMP grossly unremarkable, urinalysis unremarkable, urine drug screen confirms marijuana and cocaine, acetaminophen, salicylates and alcohol are all undetectable. EKG is nonischemic 10/09/19 20:34 Patient is completely neurologically intact, no indication for CT scan at this point. Discussed with patient that his history is not concerning for seizures or syncopal episodes as he has started and ended an episode while still holding a pencil and never woken up on the ground. He has never had any bowel or bladder dysfunction, loss of control of his bowels or bladder. Patient is concerned that he may have some neurologic disorder or he may be developing memory loss or dementia. Discussed with him that this is not something that we would diagnose acutely in the emergency department however I did make recommendations for him to stop using marijuana and cocaine and see if his memory lapses improved but he should also see a neurologist as an outpatient for further work-up into early memory loss. Also will write patient a prescription for BuSpar 5 mg twice a day to help with his anxiety. Explained to the patient why we would not be using any benzodiazepines and he agreed with this plan. Discharged home. - Vital Signs Vital signs: Temp Pulse Resp BP Pulse Ox 98.0 F 65 16 104/53 L 96 10/09/19 18:53 10/09/19 18:53 10/09/19 18:18 10/09/19 18:53 10/09/19 18:53 - Laboratory Result Diagrams: 10/09/19 19:00 10/09/19 19:00 Laboratory results interpreted by me: 10/09/19 10/09/19 10/09/19 17:35 19:00 19:00 RBC 4.20 L Alkaline Phosphatase 37 L Total Protein 6.1 L Albumin 3.1 L Urine Urobilinogen 4.0 H Salicylates < 1.0 L Acetaminophen < 10 L - EKG Interpretation by Me Additional EKG results interpreted by me: 10/09/19 20:33 EKG shows sinus bradycardia at a rate of 58, normal axis, LVH with secondary repolarization abnormality, no STEMI per my interpretation. Discharge - Discharge Clinical Impression: Memory loss or impairment, Cocaine use, Marijuana smoker, Anxiety Condition: Stable Disposition: HOME, SELF-CARE Additional Instructions: Please consider following up with neurology as an outpatient. The neurologist would look into memory loss. Please also make sure you follow-up with a psychiatrist as an outpatient. I have prescribed BuSpar 5 mg twice a day, a 2- week supply, this should help with your anxiety and give you time to be seen by 1 of the outpatient clinics. I have attached a list of various outpatient mental health clinics that you could call for follow-up. Prescriptions: Buspirone HCl [Buspar 5 mg Tablet] 1 tab PO BID #30 tab Referrals: CASEY MAZARIEGOS MD [NO LOCAL MD] - Follow up as needed
--- NOTE | 2019-10-09 23:37 | EKG REPORT ---
SEVERITY:- ABNORMAL ECG - SINUS ARRHYTHMIA, RATE 50-65 CONSIDER LEFT VENTRICULAR HYPERTROPHY ST ELEV, PROBABLE NORMAL EARLY REPOL PATTERN : Confirmed by: Olga More 09-Oct-2019 23:35:45
== END 2019-10-09 21:00 | disposition home or self-care (01) ==
LOC: ER 17:57
DX: R41.3 Other amnesia (principal); F14.10 Cocaine abuse, uncomplicated; F12.10 Cannabis abuse, uncomplicated; F41.9 Anxiety disorder, unspecified; R00.1 Bradycardia, unspecified; F17.200 Nicotine dependence, unspecified, uncomplicated; J45.909 Unspecified asthma, uncomplicated; I51.7 Cardiomegaly; Z88.8 Allergy status to other drugs, medicaments and biological substances; Z91.013 Allergy to seafood
CPT/HCPCS: 36415; 80053; 80307; 81001; 85025; 93005; 93010; 99283

== ENCOUNTER 2019-12-09 12:29 | Emergency (ER) | payer SELFPAY ==
[2019-12-09 13:52] VITALS: BP 108/64
--- NOTE | 2019-12-09 14:04 | ER Document Report ---
ED Respiratory Problem - General Chief Complaint: Cold Symptoms Stated Complaint: COLD SYMPTOMS Time Seen by Provider: 12/09/19 13:59 Mode of Arrival: Ambulatory Information source: Patient Notes: 29-year-old male presented to ED for complaint of cough cold congestion sore throat x2 days. He states he does sometimes feel like his skin is crawling. He states he does smoke 5 cigarettes a days occasionally drinks alcohol does smoke pot uses cocaine and meth. He states he has not used any doses in the last several weeks. He is alert oriented respirations regular nonlabored speaking in full sentences. His assessment is consistent with an upper respiratory infection. I have discussed treatment for a cold and congestion. Will discharge patient home to follow-up with his primary care doctor. TRAVEL OUTSIDE OF THE [place] IN LAST 30 DAYS: No - HPI Patient complains to provider of: Other - Cough congestion Onset: Other Duration: Intermittent episodes - 3 days Initiating Event: URI Quality of pain: No pain, Achy Severity: Mild Pain Level: 1 Cough: Nonproductive Associated symptoms: Congestion, Cough, PND, Runny nose, Sinus pain/pressure, Sore Throat Similar symptoms previously: Yes Recently seen / treated by doctor: No - Related Data Allergies/Adverse Reactions: risperidone [From Risperdal] Allergy (Mild, Verified 03/27/19 17:25) Dystonia iodine [Iodine] Allergy (Verified 03/27/19 17:25) Shellfish * [Shellfish] Allergy (Verified 03/27/19 17:25) Past Medical History - General Information source: Patient - Social History Smoking Status: Current Every Day Smoker Frequency of alcohol use: Occasional Drug Abuse: Cocaine, Marijuana, Methamphetamine Lives with: Friend Family History: Reviewed & Not Pertinent Patient has suicidal ideation: No Patient has homicidal ideation: No - Past Medical History Cardiac Medical History: Reports: None Pulmonary Medical History: Reports: Hx Asthma EENT Medical History: Reports: None Neurological Medical History: Reports: None Endocrine Medical History: Reports: None Renal/ Medical History: Reports: None Malignancy Medical History: Reports None GI Medical History: Reports: None Musculoskeletal Medical History: Reports None Skin Medical History: Reports None Psychiatric Medical History: Reports: Hx Anxiety, Hx Depression, Hx Schizophrenia - agorophobic panic disorder Traumatic Medical History: Reports: None Infectious Medical History: Reports: None Surgical Hx: Negative Past Surgical History: Reports: None - Immunizations Immunizations up to date: Yes Hx Diphtheria, Pertussis, Tetanus Vaccination: Yes Review of Systems - Review of Systems Constitutional: No symptoms reported EENT: Nose congestion, Nose discharge, Sinus pressure, Throat pain Cardiovascular: No symptoms reported Respiratory: Cough, Short of breath Gastrointestinal: No symptoms reported Genitourinary: No symptoms reported Male Genitourinary: No symptoms reported Musculoskeletal: No symptoms reported Skin: No symptoms reported Hematologic/Lymphatic: No symptoms reported Neurological/Psychological: No symptoms reported -: Yes All other systems reviewed and negative Physical Exam - Vital signs Vitals: Temp Pulse Resp BP Pulse Ox 98.0 F 66 16 108/64 96 12/09/19 13:51 12/09/19 13:51 12/09/19 13:51 12/09/19 13:51 12/09/19 13:51 Interpretation: Normal - General General appearance: Appears well, Alert - HEENT Head: Normocephalic, Atraumatic Eyes: Normal Pupils: PERRL Ears: Normal External canal: Normal Tympanic membrane: Normal Sinus: Normal Nasal: Purulent discharge, Swelling Mouth/Lips: Normal Mucous membranes: Normal Pharynx: Post nasal drainage Neck: Normal - Respiratory Respiratory status: No respiratory distress Chest status: Nontender Breath sounds: Normal Chest palpation: Normal - Cardiovascular Rhythm: Regular Heart sounds: Normal auscultation Murmur: No - Abdominal Inspection: Normal Distension: No distension Bowel sounds: Normal Tenderness: Nontender Organomegaly: No organomegaly - Back Back: Normal, Nontender - Extremities General upper extremity: Normal inspection, Nontender, Normal color, Normal ROM, Normal temperature General lower extremity: Normal inspection, Nontender, Normal color, Normal ROM, Normal temperature, Normal weight bearing. No: Fito's sign - Neurological Neuro grossly intact: Yes Cognition: Normal Orientation: AAOx4 [place] Coma Scale Eye Opening: Spontaneous [place] Coma Scale Verbal: Oriented [place] Coma Scale Motor: Obeys Commands [place] Coma Scale Total: 15 Speech: Normal Motor strength normal: LUE, RUE, LLE, RLE Sensory: Normal - Psychological Associated symptoms: Normal affect, Normal mood - Skin Skin Temperature: Warm Skin Moisture: Dry Skin Color: Normal Course - Re-evaluation Re-evalutation: 12/09/19 14:12 After performing a Medical Screening Examination, I estimate there is LOW risk for ACUTE CORONARY SYNDROME, RESPIRATORY FAILURE, SEPSIS OR MENINGITIS, thus I consider the discharge disposition reasonable. I have reevaluated this patient multiple times and no significant life threatening changes are noted. The patient and I have discussed the diagnosis and risks, and we agree with discharging home with close follow-up. We also discussed returning to the Emergency Department immediately if new or worsening symptoms occur. We have discussed the symptoms which are most concerning (e.g., changing or worsening pain, trouble swallowing or breathing, neck stiffness, fever) that necessitate immediate return. - Vital Signs Vital signs: Temp Pulse Resp BP Pulse Ox 98.0 F 66 16 108/64 96 12/09/19 13:51 12/09/19 13:51 12/09/19 13:51 12/09/19 13:51 12/09/19 13:51 Discharge - Discharge Clinical Impression: Upper respiratory infection Qualifiers: URI type: unspecified viral URI Qualified Code(s): J06.9 - Acute upper respiratory infection, unspecified Condition: Stable Disposition: HOME, SELF-CARE Additional Instructions: UPPER RESPIRATORY ILLNESS: You have a viral infection of the respiratory passages -- a "cold." This common infection causes nasal congestion, drainage, and often sore throat and cough. It is highly contagious. The disease usually lasts about 10 to 14 days. There is no "cure" for the viral infection -- it must run its course. If there is a complication, such as bacterial infection in the nose, sinuses, middle ear, or bronchial tubes, antibiotics may be required. The antibiotics won't affect the virus. Drink plenty of fluids. A humidifier may help. An expectorant medication or decongestant may make you more comfortable. Use acetaminophen or ibuprofen for fever or aches. See the doctor if fever persists over two days, if there is any significant worsening of your symptoms, or if you simply fail to improve as expected. You have been recommended treatment with Claritin 10 mg and Mucinex 600 mg. These are all edvw-set-xwtmytg medications for cough cold congestion. You could also use Flonase which is yqxt-myf-hwihclv 1 spray each nostril twice a day. You could also use salt soda solution gargles. These will help to remove the drainage from the back your throat. Chloraseptic spray was [id number] that will also help with your sore throat. Salt and soda solution gargle 1 quart of water 1 tablespoon of salt 1 teaspoon of baking soda Mixed 3 ingredients together and boil for 1 minute Placed in a covered quart jar Use 1/2 ounce of cold solution to gargle 3 times a day COUGH-SUPPRESSANT & EXPECTORANT MEDICATION: You are to use a cough medication as needed for relief of symptoms. This medicine is a combination of an expectorant (to make the mucous thinner and more easily "coughed up") and a cough suppressant (to reduce the frequency of coughing). The cough-suppressant medicine is related to narcotics. You may experience mild nausea and sleepiness. Some patients who are very sensitive to narcotics may have stomach pain from this medicine. Taking the medicine with food reduces these side effects. Do not drive or work with machinery until you know how this medicine affects you. The expectorant should have no side effects. Iodine-containing expectorants (such as organidin) should not be taken by persons with active thyr oid disease unless approved by your doctor. Call the doctor if you develop shortness of breath, hives, rash, itching, lightheadedness, or severe nausea and vomiting. USE OF ACETAMINOPHEN (Tylenol): Acetaminophen may be taken for pain relief or fever control. It's much safer than aspirin, offering a wider range of "safe" dosages. It is safe during . Some brand names are Tylenol, Panadol, Datril, Anacin 3, Tempra, and Liquiprin. Acetaminophen can be repeated every four hours. The following are maximum recommended dosages: >89 pounds or adults 650 mg to 900 mg Acetaminophen can be repeated every four hours. Maximum dose not to exceed 4000 mg a day. SMOKING: If you smoke, you should stop smoking. The tar and chemicals in cigarette smoke are harmful. Smoking has been shown to cause: emphysema chronic bronchitis lung cancer mouth and throat cancer stomach and pancreas cancer premature aging defects In addition, smoking increases ear and lung infections in children of smokers. FOLLOW-UP CARE: If you have been referred to a physician for follow-up care, call the [facility] office for an appointment as you were instructed or within the next two days. If you experience worsening or a significant change in your symptoms, notify the physician immediately or return to the Emergency Department at any time for re-evaluation. Forms: Smoking Cessation Education Referrals: [facility] [Provider Group] - Follow up as needed [facility] [Provider Group] - Follow up as needed [facility] [Provider Group] - Follow up as needed [facility] [Provider Group] - Follow up as needed [facility] [Provider Group] - Follow up as needed
== END 2019-12-09 14:15 | disposition home or self-care (01) ==
LOC: ER 12:29
DX: J06.9 Acute upper respiratory infection, unspecified (principal); B97.89 Other viral agents as the cause of diseases classified elsewhere; R05 Cough; J02.9 Acute pharyngitis, unspecified; R09.82 Postnasal drip; R09.89 Other specified symptoms and signs involving the circulatory and respiratory systems; J34.89 Other specified disorders of nose and nasal sinuses; F14.10 Cocaine abuse, uncomplicated; F12.10 Cannabis abuse, uncomplicated; R09.81 Nasal congestion; F15.10 Other stimulant abuse, uncomplicated; J45.909 Unspecified asthma, uncomplicated; R06.02 Shortness of breath; F17.210 Nicotine dependence, cigarettes, uncomplicated; Z88.8 Allergy status to other drugs, medicaments and biological substances; Z91.013 Allergy to seafood
CPT/HCPCS: 99283

== ENCOUNTER 2019-12-22 14:38 | Emergency (ER) | payer SELFPAY ==
[2019-12-22 14:46] VITALS: BP 129/61
[2019-12-22] MEDS ORDERED: PENICILLIN G BENZATHINE 1.2 MILLION UNIT/2 ML DISP.SYRIN IM ONE (15:36)
--- NOTE | 2019-12-22 15:39 | ER Document Report ---
HPI - HPI Time Seen by Provider: 12/22/19 15:21 Pain Level: Denies Context: Patient is a 29-year-old male who presents emergency department with a chief complaint of syphilis exposure. Patient reports he donates plasma multiple times per week. He reports today he went to bio test to give plasma and was told that he tested positive for syphilis. Patient reports he gave plasma last week and that this was negative. Patient reports his last sexual intercourse with penetration was many months ago. Patient reports he did have oral sex a few months ago. Patient denies symptoms such as testicular pain or swelling, penile discharge, rash, fever or any change from his normal. Patient denies urinary symptoms. - REPRODUCTIVE Reproductive: DENIES: : Past Medical History - General Information source: Patient - Social History Smoking Status: Current Every Day Smoker Frequency of alcohol use: Social Drug Abuse: Cocaine, Marijuana Lives with: Family Family History: Reviewed & Not Pertinent Patient has suicidal ideation: No Patient has homicidal ideation: No - Past Medical History Cardiac Medical History: Reports: None Pulmonary Medical History: Reports: Hx Asthma EENT Medical History: Reports: None Neurological Medical History: Reports: None Endocrine Medical History: Reports: None Renal/ Medical History: Reports: None. Denies: Hx Peritoneal Dialysis Malignancy Medical History: Reports None GI Medical History: Reports: None Musculoskeletal Medical History: Reports None Skin Medical History: Reports None Psychiatric Medical History: Reports: Hx Anxiety, Hx Depression, Hx Schizophrenia - agorophobic panic disorder - Immunizations Immunizations up to date: Yes Hx Diphtheria, Pertussis, Tetanus Vaccination: Yes Vertical Provider Document - CONSTITUTIONAL Agree With Documented VS: Yes Exam Limitations: No Limitations General Appearance: No Apparent Distress - INFECTION CONTROL TRAVEL OUTSIDE OF THE [place] IN LAST 30 DAYS: No - HEENT HEENT: Atraumatic, Normal ENT Exam, Normocephalic, PERRLA - NECK Neck: Normal Inspection Notes: No cervical lymphadenopathy. - RESPIRATORY Respiratory: Breath Sounds Normal, No Respiratory Distress - CARDIOVASCULAR Cardiovascular: Regular Rate, Regular Rhythm - GI/ABDOMEN Gastrointestinal: Abdomen Soft, Abdomen Non-Tender, Normal Bowel Sounds - MUSCULOSKELETAL/EXTREMETIES Musculoskeletal/Extremeties: FROM - NEURO Level of Consciousness: Awake, Alert, Appropriate - DERM Integumentary: Warm, Dry, No Rash Notes: No rash noted throughout the body. No rash on his palms. Course - Re-evaluation Re-evalutation: 12/22/19 15:38 We will test the patient for gonorrhea and chlamydia as well as HIV. We will treat for syphilis appropriately. I will also test for syphilis. We will have the patient follow-up with the health department. We will also check for urinalysis. 12/22/19 17:00 A genitalia exam was performed with LINSEY Wagner. Penis did not reveal any lesions, edema, drainage or erythema. Patient has a positive cremasteric reflex. There is no tenderness to the epididymitis, no scrotal edema, no erythema. - Vital Signs Vital signs: Temp Pulse Resp BP Pulse Ox 98.1 F 79 16 129/61 H 96 12/22/19 14:45 12/22/19 14:45 12/22/19 14:45 12/22/19 14:45 12/22/19 14:45 Discharge - Discharge Clinical Impression: Sexually transmitted disease exposure Condition: Stable Disposition: HOME, SELF-CARE Additional Instructions: *Today was seen in the emergency department for possible syphilis exposure. We have treated you with a one-time dose of Bicillin. We have also checked for gonorrhea, chlamydia and HIV. You do need to follow-up with the health department to get retested for syphilis. Please let your recent sexual partners know so they can get treated as well and tested. It is very important to follow-up with the health department as there is serious consequences with syphilis. Please avoid all sexual contact to include oral until retested. Health Department [address] [place] [id number]
[2019-12-22 16:21] LABS: APPEARANCE,URINE SLIGHTLY-CLOUDY; BILIRUBIN,URINE NEGATIVE (NEGATIVE); COLOR,URINE YELLOW; GLUCOSE, URINE NEGATIVE (NEGATIVE); KETONES,URINE NEGATIVE (NEGATIVE); LEUKOCYTE ESTERASE,URINE NEGATIVE (NEGATIVE); NITRITE,URINE NEGATIVE (NEGATIVE); PROTEIN,URINE NEGATIVE (NEGATIVE); URINE SPECIFIC GRAVITY 1.026
[2019-12-22 17:55] LABS: CHLAM PCR NOT DETECTED (NOT DETECT)
== END 2019-12-22 17:21 | disposition home or self-care (01) ==
LOC: ER 14:38
DX: Z20.2 Contact with and (suspected) exposure to infections with a predominantly sexual mode of transmission (principal); F17.200 Nicotine dependence, unspecified, uncomplicated; F14.10 Cocaine abuse, uncomplicated; F12.10 Cannabis abuse, uncomplicated; J45.909 Unspecified asthma, uncomplicated
CPT/HCPCS: 99283; 96372; 36415; 86592; 81001; 86701; 87491; 87591; J0561

== ENCOUNTER 2020-02-14 00:51 | Emergency (ER) | payer SELFPAY ==
[2020-02-14] MEDS ORDERED: IBUPROFEN 600 MG TABLET PO ONE (01:23)
[2020-02-14] MEDS ORDERED: ACETAMINOPHEN 325 MG TABLET PO ONE (01:23)
--- NOTE | 2020-02-14 01:28 | ER Document Report ---
HPI - HPI Time Seen by Provider: 02/14/20 01:13 Pain Level: Denies Context: Patient is a 29-year-old male that comes emergency department for chief complaint of sinus congestion for the past 2 days. He states he also developed a headache while at work today. He states he was sent here by work and was told he needed a work note to return. He denies chills, body aches, sore throat, cough, fever, recent travel, or any noted exposures. He states he has a history of asthma, he smokes, he admits to seasonal allergies but he does not take any daily medications including allergy medication. He does not have an albuterol inhaler and has not needed one since he was 16 years old. He states he has a history of anxiety/bipolar as well. He denies any other complaints. - REPRODUCTIVE Reproductive: DENIES: : Past Medical History - General Information source: Patient - Social History Smoking Status: Current Every Day Smoker Smoking Education Provided: Yes - <3 min Frequency of alcohol use: None Drug Abuse: None Lives with: Family Family History: Reviewed & Not Pertinent Patient has suicidal ideation: No Patient has homicidal ideation: No Pulmonary Medical History: Reports: Hx Asthma Renal/ Medical History: Denies: Hx Peritoneal Dialysis Psychiatric Medical History: Reports: Hx Anxiety, Hx Depression, Hx Schizophrenia - agorophobic panic disorder Surgical Hx: Negative - Immunizations Immunizations up to date: Yes Hx Diphtheria, Pertussis, Tetanus Vaccination: Yes Vertical Provider Document - CONSTITUTIONAL General Appearance: WD/WN, No Apparent Distress - INFECTION CONTROL TRAVEL OUTSIDE OF THE [place] IN LAST 30 DAYS: No - HEENT HEENT: Atraumatic, Normocephalic. negative: Normal ENT Exam - There is mild nasal congestion with purplish appearance of bilateral turbinates. Unremarkable oropharyngeal exam. Nontender sinuses. Unremarkable eyes and ear exams. - NECK Neck: Normal Inspection. negative: Lymphadenopathy-Left, Lymphadenopathy-Right - RESPIRATORY Respiratory: Breath Sounds Normal, No Respiratory Distress. negative: Wheezing - CARDIOVASCULAR Cardiovascular: Regular Rate, Regular Rhythm. negative: Tachycardia - GI/ABDOMEN Gastrointestinal: Abdomen Soft, Abdomen Non-Tender. negative: Abdomen Tender - BACK Back: Normal Inspection - MUSCULOSKELETAL/EXTREMETIES Musculoskeletal/Extremeties: MAEW, FROM, Non-Tender - NEURO Level of Consciousness: Awake, Alert, Appropriate Motor/Sensory: No Motor Deficit, No Sensory Deficit - DERM Integumentary: Warm, Dry, No Rash Course - Re-evaluation Re-evalutation: Patient with no sick contacts, reported sick symptoms, and physical exam is very suggestive of allergic rhinitis with purplish turbinates and nasal congestion. Discussed smoking cessation, provided with prescriptions for antiallergy and nasal spray, provided with work release on request. Patient states the headache he had earlier has resolved. He is well-appearing. Very low suspicion of any illness or concerning emergent abnormality. Discussed expectations and return precautions. Patient states understanding and agreement. Discharge - Discharge Clinical Impression: Sinus congestion Headache Qualifiers: Headache type: unspecified Headache chronicity pattern: acute headache Intractability: not intractable Qualified Code(s): R51 - Headache Condition: Stable Disposition: HOME, SELF-CARE Additional Instructions: Your evaluation is very suggestive of allergic rhinitis, this is most likely seasonal/environmental allergies that are causing your symptoms. I recommend the Flonase nasal spray, the daily antiallergy prescribed, [id number] decongestant such as Sudafed can help. Nasal rinses such as neti pot can also help. Follow-up with primary care for additional management. Stop smoking. Return for any concerning symptoms including difficulty breathing, spiking fever, or any other concerning or worsening symptoms. Prescriptions: Cetirizine HCl [24Hour Allergy] 10 mg PO DAILY #30 tablet Fluticasone Propionate [Flonase Nasal [place] 50 Mcg/[place] 16 gm] 2 sprays NASL Q12 #1 inhaler Forms: Return to Work
[2020-02-14 01:44] VITALS: BP 115/67
== END 2020-02-14 01:41 | disposition home or self-care (01) ==
LOC: ER 00:51
DX: R09.81 Nasal congestion (principal); R51 Headache; F17.200 Nicotine dependence, unspecified, uncomplicated
CPT/HCPCS: 99283

== ENCOUNTER 2020-02-18 19:41 | Emergency (ER) | payer SELFPAY ==
[2020-02-18 19:46] VITALS: BP 129/60
[2020-02-18] MEDS ORDERED: PENICILLIN V POTASSIUM 500 MG TABLET PO ONE (19:54)
[2020-02-18] MEDS ORDERED: LIDOCAINE 2% VISCOUS SOLN 15 ML UDCUP PO ONE (19:54)
--- NOTE | 2020-02-18 19:56 | ER Document Report ---
HPI - HPI Time Seen by Provider: 02/18/20 19:49 Pain Level: 4 Notes: Patient is a 21-year-old male presenting to the emergency department chief complaint of right lower dental pain. Patient reports he believes his wisdom teeth are coming in. He states he has no insurance and cannot follow-up with a dentist for extraction. He denies any fevers. - CONSTITUTIONAL Constitutional: DENIES: Fever, Chills - EENT EENT: DENIES: Sore Throat, Ear Pain, Eye problems - NEURO Neurology: DENIES: Headache, Weakness, Vision blurred, Dizzinesss / Vertigo - CARDIOVASCULAR Cardiovascular: DENIES: Chest pain - RESPIRATORY Respiratory: DENIES: Trouble Breathing, Coughing - GASTROINTESTINAL Gastrointestinal: DENIES: Abdominal Pain, Black / Bloody Stools - URINARY Urinary: DENIES: Dysuria, Urgency, Frequency - REPRODUCTIVE Reproductive: DENIES: : - MUSCULOSKELETAL Musculoskeletal: DENIES: Extremity pain Past Medical History - General Information source: Patient - Social History Smoking Status: Never Smoker Family History: Reviewed & Not Pertinent Patient has suicidal ideation: No Patient has homicidal ideation: No Pulmonary Medical History: Reports: Hx Asthma Renal/ Medical History: Denies: Hx Peritoneal Dialysis Psychiatric Medical History: Reports: Hx Anxiety, Hx Depression, Hx Schizophrenia - agorophobic panic disorder - Immunizations Immunizations up to date: Yes Hx Diphtheria, Pertussis, Tetanus Vaccination: Yes Vertical Provider Document - CONSTITUTIONAL Notes: PHYSICAL EXAMINATION: GENERAL: Well-appearing, well-nourished and in no acute distress. HEAD: Atraumatic, normocephalic. EYES: Pupils equal round extraocular movements intact, conjunctiva are normal. ENT: Nares patent NECK: Normal range of motion LUNGS: No respiratory distress Musculoskeletal: Normal range of motion NEUROLOGICAL: Normal speech, normal gait. PSYCH: Normal mood, normal affect. SKIN: Warm, Dry, normal turgor, no rashes or lesions noted. Erythema surrounding tooth #1. No obvious abscess, no trismus, no evidence of Jasen's angina. - INFECTION CONTROL TRAVEL OUTSIDE OF THE [place] IN LAST 30 DAYS: No Course - Re-evaluation Re-evalutation: Presentation is most consistent with likely an infected tooth. Airway is patent. Vitals within normal limits. Patient is able swallow without any difficulty. There is no significant facial swelling. No evidence of Jasen angina, apical abscess, or airway obstruction. Patient will be started on antibiotics. I've instructed to follow-up with dentistry as earliest ability for definitive management. At this time will discharge with return precautions and follow-up recommendations. Verbal discharge instructions given a the bedside and opportunity for questions given. Medication warnings reviewed. Patient is in agreement with this plan and has verbalized understanding of return precautions and the need for primary care follow-up in the next 24-72 hours. - Vital Signs Vital signs: Temp Pulse Resp BP Pulse Ox 98.7 F 72 16 129/60 H 100 02/18/20 19:45 02/18/20 19:45 02/18/20 19:45 02/18/20 19:45 02/18/20 19:45 Discharge - Discharge Clinical Impression: Pain, dental Condition: Stable Disposition: HOME, SELF-CARE Additional Instructions: You have been seen for dental pain. It is very important that you follow-up with a dentist for definitive care. Please return if you develop fever greater than 101, swelling in your face, vomiting, difficulty breathing or swallowing, or any other symptoms that are concerning to you. For pain you should take ibuprofen 800 mg every 8 hours as needed, you can purchase this [id number]. The litp-[id number] ibuprofen is 200 mg each tablet so please take 4 of them every 8 hours. Follow-up with the [facility] [phone] Prescriptions: Penicillin V Potassium [Penicillin Vk 500 mg Tablet] 500 mg PO BID #20 tablet
== END 2020-02-18 20:10 | disposition home or self-care (01) ==
LOC: ER 19:41
DX: K08.89 Other specified disorders of teeth and supporting structures (principal); J45.909 Unspecified asthma, uncomplicated
CPT/HCPCS: 99282; J3490

== ENCOUNTER 2020-03-07 13:08 | Emergency (ER) | payer SELFPAY ==
[2020-03-07 13:12] VITALS: BP 132/62
[2020-03-07] MEDS ORDERED: PENICILLIN G BENZATHINE 1.2 MILLION UNIT/2 ML DISP.SYRIN IM ONE (13:27)
--- NOTE | 2020-03-07 13:30 | ER Document Report ---
HPI - HPI Time Seen by Provider: 03/07/20 13:12 Context: Patient is a 29-year-old homosexual male who presents to the emergency department with possible syphilis. Patient has history of syphilis in the past. He was treated, and then continued to have unprotected sex with new people. States that he has not had sex with only 1 person and continues to have sex with multiple people. Patient states that he has "bumps on his arms and ear drainage from the right ear." Patient continues to pick at the lesions. Patient denies any penile discharge, abdominal pain, or scrotal pain. - CONSTITUTIONAL Constitutional: DENIES: Fever, Chills - EENT EENT: DENIES: Sore Throat, Ear Pain, Nasal Drainage-Clear, Congestion, Eye problems - CARDIOVASCULAR Cardiovascular: DENIES: Chest pain - RESPIRATORY Respiratory: DENIES: Coughing - GASTROINTESTINAL Gastrointestinal: DENIES: Abdominal Pain, Nausea, Patient vomiting - URINARY Urinary: DENIES: Dysuria, Urgency, Frequency - MUSCULOSKELETAL Musculoskeletal: DENIES: Extremity pain, Swelling - DERM Skin Color: Normal Skin Problems: Rash - Bilateral arms, right side of face, inner ear Past Medical History - General Information source: Patient - Social History Smoking Status: Current Every Day Smoker Family History: Reviewed & Not Pertinent Pulmonary Medical History: Reports: Hx Asthma Renal/ Medical History: Denies: Hx Peritoneal Dialysis Psychiatric Medical History: Reports: Hx Anxiety, Hx Depression, Hx Schizophrenia - agorophobic panic disorder - Immunizations Immunizations up to date: Yes Hx Diphtheria, Pertussis, Tetanus Vaccination: Yes Vertical Provider Document - CONSTITUTIONAL Agree With Documented VS: Yes Exam Limitations: No Limitations General Appearance: No Apparent Distress - INFECTION CONTROL TRAVEL OUTSIDE OF THE [place] IN LAST 30 DAYS: No - HEENT HEENT: Atraumatic, Normocephalic. negative: Pharyngeal Erythema, Tympanic Membrane Red, Tympanic Membrane Bulging Notes: Erythema to right external auditory canal. - RESPIRATORY Respiratory: No Respiratory Distress - CARDIOVASCULAR Cardiovascular: Regular Rate Pulses: Normal: Radial - MUSCULOSKELETAL/EXTREMETIES Musculoskeletal/Extremeties: FROM - NEURO Level of Consciousness: Awake, Alert, Appropriate Motor/Sensory: No Motor Deficit, No Sensory Deficit - DERM Integumentary: Rash - Consistent with syphilis Course - Re-evaluation Re-evalutation: 03/07/20 14:01 Patient was empirically treated for syphilis here in the emergency department. No need for genital exam, as the patient denies any anal discharge, abdominal pain, or any other symptoms at this time. Urinalysis is unremarkable. Gonorrhea and Chlamydia tests sent. I have very low suspicion for necrotizing fasciitis, or any life-threatening etiology at this time. Follow-up precautions were given. Verbal discharge instructions were given to the patient. They verbalized understanding. They are stable for discharge. - Vital Signs Vital signs: Temp Pulse Resp BP Pulse Ox 99.0 F 85 16 132/62 H 97 03/07/20 13:10 03/07/20 13:10 03/07/20 13:10 03/07/20 13:10 03/07/20 13:10 Discharge - Discharge Clinical Impression: Screening for STD (sexually transmitted disease) Otitis externa Qualifiers: Otitis externa type: unspecified type Chronicity: acute Laterality: right Qualified Code(s): H60.501 - Unspecified acute noninfective otitis externa, right ear Condition: Stable Disposition: HOME, SELF-CARE Additional Instructions: You are seen today in the emergency department for lesions that are consistent with syphilis. You are being tested for syphilis, gonorrhea, and chlamydia. You are also treated for syphilis. If your results are positive, you will be notified. Please make sure you are protecting yourself so you do not contract STDs again. If you decide to have sexual relations, please wear a condom or have your partner use a condom all the time. Do not have sex until your symptoms go away. Place 4 drops to your right ear twice a day for 7 days.
[2020-03-07 13:50] LABS: APPEARANCE,URINE CLEAR; BILIRUBIN,URINE NEGATIVE (NEGATIVE); COLOR,URINE YELLOW; GLUCOSE, URINE NEGATIVE (NEGATIVE); KETONES,URINE NEGATIVE (NEGATIVE); LEUKOCYTE ESTERASE,URINE NEGATIVE (NEGATIVE); NITRITE,URINE NEGATIVE (NEGATIVE); PROTEIN,URINE 30 mg/dL (NEGATIVE); URINE SPECIFIC GRAVITY 1.029
[2020-03-07] MEDS ORDERED: CIPROFLOXACIN HCL/DEXAMETH OTIC DROP 7.5 ML AD ONE (13:58)
[2020-03-07 15:22] LABS: CHLAM PCR NOT DETECTED (NOT DETECT)
[2020-03-08 10:22] LABS: RAPID PLASMA REAGIN REACTIVE 1:8 (NONREACTIVE)
== END 2020-03-07 14:06 | disposition home or self-care (01) ==
LOC: ER 13:08
DX: Z20.2 Contact with and (suspected) exposure to infections with a predominantly sexual mode of transmission (principal); H60.501 Unspecified acute noninfective otitis externa, right ear; R21 Rash and other nonspecific skin eruption; F17.200 Nicotine dependence, unspecified, uncomplicated
CPT/HCPCS: 99283; 96372; 36415; 86592; 81001; 87491; 87591; J0561; J3490

== ENCOUNTER 2020-04-01 10:59 | Emergency (ER) | payer SELFPAY ==
[2020-04-01 11:04] VITALS: BP 117/54
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
== END 2020-04-01 11:19 | disposition home or self-care (01) ==
LOC: ER 10:59
DX: Z02.89 Encounter for other administrative examinations (principal); M25.562 Pain in left knee
CPT/HCPCS: 99281

== ENCOUNTER 2020-04-20 22:23 | Emergency (ER) | payer SELFPAY ==
[2020-04-20 22:30] VITALS: BP 126/60
[2020-04-20] MEDS ORDERED: METOCLOPRAMIDE HCL 10 MG TABLET PO ONE (22:48)
--- NOTE | 2020-04-20 22:50 | ER Document Report ---
HPI - HPI Patient complains to provider of: Diarrhea this morning Time Seen by Provider: 04/20/20 22:42 Onset: Other - This is a 27-year-old male who had diarrhea once this morning he states that about 2 hours after he got to work this morning he started feeling better in fact he had [place] food sweet and sour several honey buns some apple juice and has felt fine he is not had any nausea vomiting no diarrhea at all since this morning. Pain Level: Denies - REPRODUCTIVE Reproductive: DENIES: : Past Medical History - General Information source: Patient - Social History Smoking Status: Current Every Day Smoker Chew tobacco use (# tins/day): No Smoking Education Provided: No Frequency of alcohol use: daily Drug Abuse: Marijuana Family History: Reviewed & Not Pertinent Patient has homicidal ideation: No Pulmonary Medical History: Reports: Hx Asthma Renal/ Medical History: Denies: Hx Peritoneal Dialysis Psychiatric Medical History: Reports: Hx Anxiety, Hx Depression, Hx Schizophrenia - agorophobic panic disorder - Immunizations Immunizations up to date: Yes Hx Diphtheria, Pertussis, Tetanus Vaccination: Yes Vertical Provider Document - CONSTITUTIONAL Agree With Documented VS: Yes - INFECTION CONTROL TRAVEL OUTSIDE OF THE [place] IN LAST 30 DAYS: No - HEENT HEENT: Atraumatic, Conjuctival Injection, Normocephalic, PERRLA - NECK Neck: Normal Inspection - RESPIRATORY Respiratory: Breath Sounds Normal, No Respiratory Distress - CARDIOVASCULAR Cardiovascular: Regular Rate, Regular Rhythm - GI/ABDOMEN Gastrointestinal: Abdomen Soft, Abdomen Non-Tender - REPRODUCTIVE Male Genitalia: Normal Inspection - BACK Back: Normal Inspection - MUSCULOSKELETAL/EXTREMETIES Musculoskeletal/Extremeties: WAEW Course - Re-evaluation Re-evalutation: 04/20/20 22:46 Given the patient 8 and drink freely today did not have any episodes of nausea vomiting he is got normal active bowel sounds. The patient and I discussed and agreed to provide him with some Reglan to help him if he had any gastric mobility issues he should follow-up brat diet for 24 hours followed back up in the emergency room tomorrow or if he has any dis comfort or worsening. He should return to the emergency room immediately for any change or worsening. Increase fluid intake rest follow-up with PMD. - Vital Signs Vital signs: Temp Pulse Resp BP Pulse Ox 98.3 F 72 16 126/60 H 99 04/20/20 22:36 04/20/20 22:29 04/20/20 22:29 04/20/20 22:29 04/20/20 22:29 Discharge - Discharge Clinical Impression: Diarrhea Qualifiers: Diarrhea type: unspecified type Qualified Code(s): R19.7 - Diarrhea, unspecified Disposition: HOME, SELF-CARE Instructions: Diarrhea, Nonspecific ([facility]) Additional Instructions: Diarrhea Diarrhea means frequent, watery stools. There are many causes. Any problem that keeps the intestinal tract from absorbing water from the stool can lead to diarrhea. A sudden new diarrhea problem is usually caused by a virus, food sensitivity, toxic bacteria, or drugs. In this case, we expect the problem to go away soon. Testing is done only if you seem seriously ill from the diarrhea. If you have chronic diarrhea, or diarrhea that keeps coming back, we need to find out why. Chronic diarrhea can be due to inflammation of the bowels such as Crohn's disease or ulcerative colitis, food sensitivity such as intolerance to lactose or wheat protein, irritable bowel syndrome, and other problems. If your diarrhea is a significant problem but it's not clear why you have it, we'll refer you to a specialist for further testing. During an episode of diarrhea, drink small amounts (two to six ounces) of clear liquids (soft drinks, sport drinks, herb teas, broth, etc). Take fluids frequently to prevent dehydration. It's usually not a problem to take mild anti- diarrhea medication such as Kaopectate or Pepto-Bismol. As the diarrhea eases, advance to small amounts of bland food (mashed potato, toast) for 24 hours. Call the physician if blood appears in your vomit or stool, if vomiting lasts longer than 24 hours, if the abdominal pain worsens or becomes localized to one area, if you develop high fever, or if you become lightheaded and weak. Prescriptions: Metoclopramide HCl [Reglan] 10 mg PO Q6 PRN #20 tablet PRN Reason:
== END 2020-04-20 22:54 | disposition home or self-care (01) ==
LOC: ER 22:23
DX: R19.7 Diarrhea, unspecified (principal); F17.200 Nicotine dependence, unspecified, uncomplicated; J45.909 Unspecified asthma, uncomplicated
CPT/HCPCS: 99283

== ENCOUNTER 2020-06-08 08:25 | Emergency (ER) | payer SELFPAY ==
[2020-06-08 08:43] VITALS: BP 142/59
[2020-06-08] MEDS ORDERED: KETOROLAC TROMETHAMINE 60 MG/2 ML SDV IM ONE (10:23)
--- NOTE | 2020-06-08 10:27 | ER Document Report ---
ED Headache - General Chief Complaint: Headache Stated Complaint: HEADACHE Time Seen by Provider: 06/08/20 09:50 Notes: CHIEF COMPLAINT: Headache and sinus pain for 2 days HPI: 29-year-old male presenting to the emergency department complaining of frontal headache not thunderclap in onset over the last 2 days with sinus pressure. Took no medications for symptoms. No fever. Denies nausea vomiting. Denies chest pain cough shortness of breath abdominal pain. Denies nausea vomiting. Does report mild sensitivity to light. ROS: See HPI - all other systems were reviewed and are otherwise negative Constitutional: no fever Eyes: no drainage, no blurred vision, positive photosensitivity ENT: no runny nose, no sore throat Cardiovascular: no chest pain Resp: no SOB, no cough GI: no vomiting, no diarrhea, no abdominal pain : no dysuria Integumentary: no rash Allergy: no hives Musculoskeletal: no extremity pain or swelling Neurological: no numbness/tingling, no weakness, positive headache MEDICATIONS: I agree with the patient medications as charted by the RN. ALLERGIES: I agree with the allergies as charted by the RN. PAST MEDICAL HISTORY/PAST SURGICAL HISTORY: Reviewed and agree as charted by RN. SOCIAL HISTORY: Reviewed and agree as charted by RN. FAMILY HISTORY: No significant familial comorbid conditions directly related to patient complaint EXAM: Reviewed vital signs as charted by RN. CONSTITUTIONAL: Alert and oriented and responds appropriately to questions. Well-appearing; well-nourished HEAD: Normocephalic; atraumatic EYES: PERRL; Conjunctivae clear, sclerae non-icteric. No photosensitivity is noted on exam ENT: normal nose; no rhinorrhea; moist mucous membranes; pharynx without lesions noted, no uvula edema or deviation, no tonsillar hypertrophy, phonation normal. Mild tenderness over the frontal and maxillary sinuses on palpation without visible facial swelling NECK: Supple without meningismus; non-tender; no cervical lymphadenopathy, no masses CARD: RRR; no murmurs, no clicks, no rubs, no gallops; symmetric distal pulses RESP: Normal chest excursion without splinting or tachypnea; breath sounds clear and equal bilaterally; no wheezes, no rhonchi, no rales, pulse oximetry 99% on room air not hypoxic ABD/GI: Normal bowel sounds; non-distended; soft, non-tender, no rebound, no guarding; no palpable organomegaly or masses. BACK: The back appears normal and is non-tender to palpation, there is no CVA tenderness EXT: Normal ROM in all joints; non-tender to palpation; no cyanosis, no effusions, no edema SKIN: Normal color for age and race; warm; dry; good turgor; no acute lesions noted NEURO: Moves all extremities equally; Motor and sensory function intact. Strength equal 5/5 bilateral upper and lower extremities. Gait is normal. CN II through XII grossly intact PSYCH: The patient's mood and manner are appropriate. Grooming and personal hygiene are appropriate. MDM: 29-year-old otherwise healthy male with 2 days of a frontal headache in the sinus region. He adamantly does not want a COVID test. He is afebrile. No history of frequent or chronic headaches. No indication for imaging at this time. Will give Toradol, place patient on decongestants and anti-inflammatories refer to PCP follow-up with return instructions TRAVEL OUTSIDE OF THE [place] IN LAST 30 DAYS: No - Related Data Allergies/Adverse Reactions: risperidone [From Risperdal] Allergy (Mild, Verified 04/01/20 11:16) Dystonia iodine [Iodine] Allergy (Verified 04/01/20 11:16) Shellfish * [Shellfish] Allergy (Verified 04/01/20 11:16) Home Medications: albuterol Past Medical History - Social History Smoking Status: Current Every Day Smoker Frequency of alcohol use: Heavy Drug Abuse: Marijuana Family History: Reviewed & Not Pertinent Pulmonary Medical History: Reports: Hx Asthma Renal/ Medical History: Denies: Hx Peritoneal Dialysis Psychiatric Medical History: Reports: Hx Anxiety, Hx Depression, Hx Schizophrenia - agorophobic panic disorder - Immunizations Immunizations up to date: Yes Hx Diphtheria, Pertussis, Tetanus Vaccination: Yes Physical Exam - Vital signs Vitals: Temp Pulse Resp BP Pulse Ox 98.4 F 60 18 142/59 H 98 06/08/20 08:41 06/08/20 08:41 06/08/20 08:41 06/08/20 08:41 06/08/20 08:41 Course - Vital Signs Vital signs: Temp Pulse Resp BP Pulse Ox 98.4 F 60 18 142/59 H 98 06/08/20 08:41 06/08/20 08:41 06/08/20 08:41 06/08/20 08:41 06/08/20 08:41 Discharge - Discharge Clinical Impression: Sinus pain Headache Qualifiers: Headache type: unspecified Headache chronicity pattern: acute headache Intractability: not intractable Qualified Code(s): R51 - Headache Condition: Stable Disposition: HOME, SELF-CARE Additional Instructions: Take the medications as prescribed. You declined COVID testing today. Follow- up with a primary care provider for reevaluation of symptoms if they persist. If you develop worsening symptoms fever greater than 101 or other concerns return for reevaluation Prescriptions: Pseudoephedrine HCl [Sudafed 12 Hour] 120 mg PO BID #20 tablet.er Diclofenac Sodium [Voltaren 50 Mg Tablet.] 50 mg PO BID #20 tablet. Referrals: LENI RODRIGUEZ MD [ACTIVE STAFF] - Follow up as needed
== END 2020-06-08 10:48 | disposition home or self-care (01) ==
LOC: ER 08:25
DX: R51 Headache (principal); H53.149 Visual discomfort, unspecified; F17.200 Nicotine dependence, unspecified, uncomplicated
CPT/HCPCS: 99283; 96372; J1885

== ENCOUNTER 2020-06-20 05:25 | Emergency (ER) | payer SELFPAY ==
[2020-06-20 05:43] VITALS: BP 106/62
== END 2020-06-20 08:00 | disposition left against medical advice (07) ==
LOC: ER 05:25
DX: Z53.21 Procedure and treatment not carried out due to patient leaving prior to being seen by health care provider (principal); R19.7 Diarrhea, unspecified; Z20.828 Contact with and (suspected) exposure to other viral communicable diseases

== ENCOUNTER 2020-06-21 05:59 | Emergency (ER) | payer SELFPAY ==
[2020-06-21] MEDS ORDERED: LOPERAMIDE HCL 2 MG CAPSULE PO ONE (08:43)
--- NOTE | 2020-06-21 08:46 | ER Document Report ---
HPI - HPI Patient complains to provider of: Diarrhea Time Seen by Provider: 06/21/20 08:19 Onset: Other - 5 days Onset/Duration: Worse Pain Level: Denies Context: Patient presents complaining of diarrhea for the past 4 to 5 days. Patient states that he is gone 3 times today. No blood in the stool. Patient denies any fever. Patient denies any abdominal tenderness. Patient is concerned about possible coronavirus and would like to be tested. Associated Symptoms: Diarrhea. denies: Nonproductive cough, Productive cough, Fever, Nausea, Vomiting Exacerbated by: Denies Relieved by: Denies Similar symptoms previously: Yes Recently seen / treated by doctor: No - ROS ROS below otherwise negative: Yes Systems Reviewed and Negative: Yes All other systems reviewed and negative - CONSTITUTIONAL Constitutional: DENIES: Fever, Chills - NEURO Neurology: DENIES: Weakness - RESPIRATORY Respiratory: DENIES: Coughing - GASTROINTESTINAL Gastrointestinal: REPORTS: Diarrhea. DENIES: Abdominal Pain, Patient vomiting - URINARY Urinary: DENIES: Dysuria - DERM Skin Color: Normal Skin Problems: None Past Medical History - General Information source: Patient - Social History Smoking Status: Current Every Day Smoker Chew tobacco use (# tins/day): No Frequency of alcohol use: Occasional Drug Abuse: Marijuana Occupation: Retail Family History: Reviewed & Not Pertinent Patient has homicidal ideation: No Pulmonary Medical History: Reports: Hx Asthma Renal/ Medical History: Denies: Hx Peritoneal Dialysis Psychiatric Medical History: Reports: Hx Anxiety, Hx Depression, Hx Schizophrenia - agorophobic panic disorder Surgical Hx: Negative - Immunizations Immunizations up to date: Yes Hx Diphtheria, Pertussis, Tetanus Vaccination: Yes Vertical Provider Document - CONSTITUTIONAL Agree With Documented VS: Yes Exam Limitations: No Limitations General Appearance: WD/WN, No Apparent Distress - INFECTION CONTROL TRAVEL OUTSIDE OF THE [place] IN LAST 30 DAYS: No - HEENT HEENT: Atraumatic, Normocephalic - NECK Neck: Normal Inspection, Supple. negative: Lymphadenopathy-Left, Lymphadenopathy-Right - RESPIRATORY Respiratory: Breath Sounds Normal, No Respiratory Distress - CARDIOVASCULAR Cardiovascular: Regular Rate, Regular Rhythm, No Murmur - GI/ABDOMEN Gastrointestinal: Abdomen Soft, Abdomen Non-Tender, No Organomegaly, Normal Bowel Sounds - BACK Back: Normal Inspection. negative: CVA Tenderness-Right, CVA Tenderness-Left - MUSCULOSKELETAL/EXTREMETIES Musculoskeletal/Extremeties: MAEW - NEURO Level of Consciousness: Awake, Alert, Appropriate Motor/Sensory: No Motor Deficit - DERM Integumentary: Warm, Dry, No Rash Course - Re-evaluation Re-evalutation: 06/21/20 08:44 The patient was evaluated during the global Covid 19 pandemic, and that diagnosis was suspected/considered upon their initial presentation. Their evaluation, treatment and testing was consistent with current guidelines for patients who present with complaints or symptoms that may be related to Covid 19. Patient presents with symptoms worrisome for possible Covid 19. Patient does not have emergency worrying symptoms such as difficulty breathing, shortness of breath, chest pain, pressure, confusion or cyanosis. Patient appears suitable for discharge as they are not of an advanced age, do not have any chronic medical conditions such as diabetes, CAD, immune deficiency, chronic lung disease or chronic kidney disease. Patient's vital signs are stable and patient is nontoxic in appearance. Good return precautions have been discussed with patient, patient verbalized understanding and is agreeable with discharge plan of care at this time. - Vital Signs Vital signs: Temp Pulse Resp BP Pulse Ox 98.7 F 69 18 124/58 L 98 06/21/20 06:08 06/21/20 06:08 06/21/20 06:08 06/21/20 06:08 06/21/20 06:08 Discharge - Discharge Clinical Impression: Encounter for screening laboratory testing for COVID-19 virus Diarrhea Qualifiers: Diarrhea type: unspecified type Qualified Code(s): R19.7 - Diarrhea, unspecified Condition: Stable Disposition: HOME, SELF-CARE Instructions: COVID-19 Guidance for Persons Under Investigation, Diarrhea, Nonspecific ([facility]) Additional Instructions: Return immediately for any new or worsening symptoms Followup with your primary care provider, call tomorrow to make a followup appointment You may take Imodium [id number] as directed to help with symptoms Forms: Return to Work Referrals: [facility] [Provider Group] - Follow up as needed
[2020-06-21 09:09] VITALS: BP 115/64
== END 2020-06-21 09:18 | disposition home or self-care (01) ==
LOC: ER 05:59
DX: R19.7 Diarrhea, unspecified (principal); Z20.828 Contact with and (suspected) exposure to other viral communicable diseases
CPT/HCPCS: 99282; 87635; C9803